=== PATIENT | female | born 1970 | race Caucasian/White ===

== ENCOUNTER 2019-12-04 02:40 | Emergency (ER) | payer MEDICARE ==
[~2019-12-04] VITALS: Ht 167.6 cm; Wt 63.0 kg
--- NOTE | 2019-12-04 03:03 | NUR ---
ERP TO BEDSIDE.
[2019-12-04] MEDS ORDERED: DIAZEPAM 5 MG TABLET ONE ×2 (03:16→03:22)
[2019-12-04] MEDS ORDERED: DIAZEPAM 5 MG TABLET PO ONE (03:30)
--- NOTE | 2019-12-04 03:30 | NUR ---
PT LAYING IN BED, CONVERSING WITH THIS RN, POSITIONED TO COMFORT, CALL LIGHT IN REACH. NO SIGNS OF DISTRESS. PT TO IMAGING AT THIS TIME.
[2019-12-04 03:39] LABS: MICROSCOPIC AUTO
--- NOTE | 2019-12-04 03:50 | NUR ---
PT SLEEPING IN BED, IN POSITION OF COMFORT, RESPIRATIONS EVEN AND UNLABORED.
[2019-12-04 04:23] VITALS: BP 149/80
--- NOTE | 2019-12-04 04:24 | NUR ---
PT SLEEPING, EASILY AROUSED WITH VERBAL STIMULI.
--- NOTE | 2019-12-04 04:35 | NUR ---
PT AMBULATORY TO BATHROOM, STEADY GAIT.
== END 2019-12-04 05:05 | disposition home or self-care (01) ==
LOC: ED 03:10
DX: M54.42 Lumbago with sciatica, left side (principal); N39.0 Urinary tract infection, site not specified; F15.10 Other stimulant abuse, uncomplicated; F17.210 Nicotine dependence, cigarettes, uncomplicated; I10 Essential (primary) hypertension
CPT/HCPCS: 72110; 81001; 87077; 87086; 87186; 99284